=== PATIENT | male | born 1960 | race Caucasian/White ===

== ENCOUNTER 2017-08-22 11:36 | Emergency (ER) | payer BC ==
[~2017-08-22] VITALS: Ht 175.3 cm; Wt 91.6 kg
[2017-08-22 11:47] VITALS: TEMP 36.8; Ht 175.3 cm; Wt 91.6 kg
[2017-08-22] MEDS ORDERED: SODIUM CHLORIDE 0.9% 1000ML 1,000 ML IV STA (12:09)
--- NOTE | 2017-08-22 12:12 | EMERGENCY ROOM VISIT NOTE ---
History Report prepared by Alonzo: Chris Larose Under the Supervision of: Dr. Landon Martínez M.D. First contact with patient: 11:56 Chief Complaint: NAUSEA Stated Complaint: NAUSEA,NUMBNESS LEGS,HEAD,JAW History of Present Illness The patient is a 57 year old male who presents to the Emergency Room with complaints of constant numbness and tingling in his legs that began prior to arrival rated as 0/10. When he was driving from [place], he stopped at a rest area, and had a bowel movement which he states made him feel slightly better. After driving again, he reports the leg numbness returned, along with facial numbness, neck pain, jaw pain, chest pain, nausea, and SOB. He had Aspirin (324 mg) prior to arrival with relief and is on CPAP for central sleep apnea. After exercising for the past few months, he states that he has lost his balance at times. He states that the numbness and tingling in his legs has occurred before when sitting in his office. He follows with his neurologist and had an appointment 1 week ago with normal findings. He had an MRI of his brain for his cluster headaches in February [address] scan in May 2017. The patient reports he was treated for Lyme Disease 4 years ago. He denies bloody stools, difficulty walking, recent falls, head injuries, headaches, and loss of bladder and bowel control. He denies recent tick bites, thyroid function testing, and high blood pressure. Source of History: patient Onset: [employer] Position: chest, shoulder (left), leg Symptom Intensity: pain rated as 0/10 Quality: tingling Timing: constant Modifying Factors (Relieving): other (Aspirin) Associated Symptoms: + neck pain, + chest pain, + SOB, + nausea, No headache Note: Patient reports numbness and tingling in face and jaw pain. He denies difficulty walking, recent falls, head injuries, and loss of bladder and bowel control. Review of Systems See HPI for pertinent positives & negatives. A total of 10 systems reviewed and were otherwise negative. Past Medical & Surgical Medical Problems: (1) Anxiety (2) Lyme disease Surgical Problems: (1) Hx of tonsillectomy (2) S/P correction of deviated nasal septum Family History FHx: Crohn's disease FHx: cancer FHx: heart disease Social History Smoking Status: Never Smoker Alcohol Use: occasionally Marital Status: Housing Status: lives with family Occupation Status: employed Current/Historical Medications No Active Prescriptions or Reported Meds Allergies Coded Allergies: No Known Allergies (Unverified , 08/22/17) Physical Exam Vital Signs Date Time Temp Pulse Resp B/P (MAP) Pulse Ox O2 Delivery O2 Flow Rate FiO2 08/22/17 15:28 79 18 136/89 98 Room Air 08/22/17 14:26 72 18 122/87 97 Room Air 08/22/17 13:05 61 18 138/97 99 Room Air 08/22/17 11:47 36.8 85 18 170/96 95 Room Air Physical Exam GENERAL: Patient is anxious appearing and in minimal distress. EYES: No scleral icterus, unremarkable pupils. ENT: Mucous membranes moist, no nasal congestion. NECK: No masses appreciated, no meningismus, trachea is midline. RESPIRATORY: No dyspnea. Clear to auscultation and equal bilaterally. No wheeze , no rhonchi. CARDIOVASCULAR: Regular rate and rhythm. No murmurs, rubs, gallops appreciated. GASTROINTESTINAL: Abdomen soft, nontender, no peritonitis. Bowel sounds positive. No masses appreciated. BACK: No midline tenderness, no CVA tenderness EXTREMITIES: Normal motion all extremities, no cyanosis, no edema. NEUROLOGIC: Alert and oriented, no acute motor or sensory deficits, no focal weakness, cranial nerves grossly intact. SKIN: No rash, no jaundice, no diaphoresis. Medical Decision & Procedures ER Provider Diagnostic Interpretation: Radiology results and stated below per my review and radiologist interpretation: SINGLE VIEW CHEST CLINICAL HISTORY: Atypical chest pain. FINDINGS: An AP, portable, upright chest radiograph is obtained. No prior studies are available for comparison at the time of dictation. The examination is degraded by portable technique and patient rotation. The heart is mildly enlarged. The mediastinal contour is within normal limits. The pulmonary vasculature is noncongested. No airspace consolidation or pleural effusion is identified. No pneumothorax is seen. The bony thorax is grossly intact. IMPRESSION: Mild cardiac enlargement with no acute cardiopulmonary abnormality. Electronically signed by: Antonio Mendez M.D. 08/22/2017 1:05 PM Dictated Date/Time: 08/22/2017 1:05 PM Laboratory Results 08/22/17 12:41 Red Blood Count 4.57, Mean Corpuscular Volume 90.2, Mean Corpuscular Hemoglobin 31.1, Mean Corpuscular Hemoglobin Concent 34.5, Mean Platelet Volume 9.2, Neutrophils (%) (Auto) 59.6, Lymphocytes (%) (Auto) 27.2, Monocytes (%) (Auto) 10.4, Eosinophils (%) (Auto) 2.1, Basophils (%) (Auto) 0.5, Neutrophils # (Auto ) 3.69, Lymphocytes # (Auto) 1.68, Monocytes # (Auto) 0.64, Eosinophils # (Auto ) 0.13, Basophils # (Auto) 0.03 08/22/17 12:41 Test 08/22/17 12:41 08/22/17 14:26 White Blood Count 6.18 K/uL (4.8-10.8) Red Blood Count 4.57 M/uL (4.7-6.1) Hemoglobin 14.2 g/dL (14.0-18.0) Hematocrit 41.2 % (42-52) Mean Corpuscular Volume 90.2 fL (80-100) Mean Corpuscular Hemoglobin 31.1 pg (25-34) Mean Corpuscular Hemoglobin Concent 34.5 g/dl (32-36) Platelet Count 222 K/uL (130-400) Mean Platelet Volume 9.2 fL (7.4-10.4) Neutrophils (%) (Auto) 59.6 % Lymphocytes (%) (Auto) 27.2 % Monocytes (%) (Auto) 10.4 % Eosinophils (%) (Auto) 2.1 % Basophils (%) (Auto) 0.5 % Neutrophils # (Auto) 3.69 K/uL (1.4-6.5) Lymphocytes # (Auto) 1.68 K/uL (1.2-3.4) Monocytes # (Auto) 0.64 K/uL (0.11-0.59) Eosinophils # (Auto) 0.13 K/uL (0-0.5) Basophils # (Auto) 0.03 K/uL (0-0.2) RDW Standard Deviation 42.0 fL (36.4-46.3) RDW Coefficient of Variation 12.8 % (11.5-14.5) Immature Granulocyte % (Auto) 0.2 % Immature Granulocyte # (Auto) 0.01 K/uL (0.00-0.02) D-Dimer 250 ug/L FEU (0-500) Anion Gap 4.0 mmol/L (3-11) Est Creatinine Clear Calc Drug Dose 70.1 ml/min Estimated GFR () 70.2 Estimated GFR (Non- 60.6 BUN/Creatinine Ratio 13.5 (10-20) Calcium Level 8.8 mg/dl (8.5-10.1) Total Creatine Kinase 161 U/L (39-308) Creatine Kinase MB 1.3 ng/ml (0.5-3.6) Creatine Kinase MB Ratio 0.8 (0-3.0) Troponin I < 0.015 ng/ml (0-0.045) Thyroid Stimulating Hormone (TSH) 1.430 uIu/ml (0.300-4.500) Lyme Disease IgG Antibody NEG (NEG) Lyme Disease IgM Antibody NEG (NEG) Bedside Troponin I < 0.030 ng/ml (0-0.045) Laboratory results as reviewed by me. Medications Administered Medications (Trade) Dose Ordered Sig/Vale Route Start Time Stop Time Status Last Admin Dose Admin Sodium Chloride 1,000 ml @ 999 mls/hr Q1H1M STAT IV 08/22/17 12:09 08/22/17 13:09 DC 08/22/17 12:49 999 MLS/HR ECG Per My Interpretation Indication: nausea Rate (beats per minute): 73 Rhythm: normal sinus Findings: no acute ischemic change, no ectopy, other (QTc of 423) Comparison ECG Date: no prior available ED Course 1156: The patient was evaluated in room B6. A complete history and physical exam was performed. 1400: I checked on the patient and he is resting comfortably. He states he feels better and will follow up with his PCP. We discussed further imaging of his brain, back, gallbladder, and vasculature. 1415: Reevaluated the patient. Discussed results and discharge instructions: He verbalized understanding and agreement. The patient is ready for discharge. Medical Decision Differential: Sepsis, Infectious (UTI/Pneumonia/Meningitis/etc), Metabolic/ Electrolyte Abnormality, Cardiac, Dehydration, Anemia, Hepatic, Endocrine, Toxicologic, Neurologic, amongst other pathologies entertained. 57 yr old male arrives for evaluation of left upper chest discomfort resolved with ASA 324mg PO [employer]. Associated with bilateral leg tingling, hand/adama-oral paresthesias, and generalized weakness. This all started with episode of nausea which resolved after large BM. After discussing this further with him it is clear that he has been having these symptoms in varying degrees over the last 6 months with multiple ED visits, MRI brain, CT brain and neurologic evaluations. History of Anxiety and Migraines though notes no Anxiety issues in many years. No neuro deficits on evaluation and symptoms do not seem very typical of stroke, migraine, ACS. He was traveling thus Dimer done due to CP but this was negative and he is low risk PE. EKG unremarkable. Trop x 2 over several hours negative. TSH normal. Lyme negative IgM (previously had Lyme treatment 4 years ago). During time no issues throughout stay. Heavily advised follow up with PCP for further discussion of imaging/testing including possible MRI brain/lumbar, stress testing, arterial mapping, etc. Patient comfortable with this plan. [place] Drug Monitoring Program Search Results: patient reviewed within database, no issues identified Head Trauma GCS Score: 15 Medication Reconcilliation Current Medication List: was personally reviewed by me Blood Pressure Screening Patient's blood pressure: Elevated blood pressure Blood pressure disposition: Elevated BP felt to be situational Impression Primary Impression: Left sided chest pain Additional Impressions: Paresthesia of both hands Paresthesia of bilateral legs Facial paresthesia Scribe Attestation The scribe's documentation has been prepared under my direction and personally reviewed by me in its entirety. I confirm that the note above accurately reflects all work, treatment, procedures, and medical decision making performed by me. Departure Information Dispostion Home / Self-Care Prescriptions No Active Prescriptions or Reported Meds Patient Instructions My [facility] Additional Instructions It is advised you discuss whether you should have an MRI of brain/low back, arterial Ultrasounds, and possibly stress testing. If you develop worsening abdominal pain, weakness, passing out, chest pains or other concerns call 911 or return to ED immediately. Lyme testing was negative. TSH was 1.43 which is normal. Blood counts, electrolytes and kidney function were normal as well. You have been examined and treated today on an emergency basis only. This is not a substitute for, or an effort to provide, complete comprehensive medical care. It is impossible to recognize and treat all injuries or illnesses in a single emergency department visit. It is therefore important that you follow up closely with your Primary Physician. Call as soon as possible for an appointment so you can review all labs, imaging and other testing that you had. Return to Emergency Department, call 911 or seek immediate medical attention if you feel your symptoms are worsening. Problem Qualifiers
[2017-08-22 12:51] LABS: BASO % 0.5 %; BASO ABS # 0.03 K/uL (0-0.2); EOS % 2.1 %; EOS ABS # 0.13 K/uL (0-0.5); HEMATOCRIT 41.2 % (42-52); HEMOGLOBIN 14.2 g/dL (14.0-18.0); IG# 0.01 K/uL (0.00-0.02); LYMPH % 27.2 %; LYMPH ABS # 1.68 K/uL (1.2-3.4); MEAN CELL VOLUME 90.2 fL (80-100); MEAN CORPUSCULAR HEMOGLOBIN 31.1 pg (25-34); MEAN CORPUSCULAR HGB CONC 34.5 g/dl (32-36); MEAN PLATELET VOLUME 9.2 fL (7.4-10.4); MONO % 10.4 %; MONO ABS # 0.64 K/uL (0.11-0.59); NEUT % 59.6 %; NEUT ABS # 3.69 K/uL (1.4-6.5); PLATELET COUNT 222 K/uL (130-400); RED CELL DISTRIBUTION WIDTH CV 12.8 % (11.5-14.5); WHITE BLOOD COUNT 6.18 K/uL (4.8-10.8)
--- NOTE | 2017-08-22 13:07 | DIAGNOSTIC IMAGING REPORT ---
SINGLE VIEW CHEST CLINICAL HISTORY: Atypical chest pain. FINDINGS: An AP, portable, upright chest radiograph is obtained. No prior studies are available for comparison at the time of dictation. The examination is degraded by portable technique and patient rotation. The heart is mildly enlarged. The mediastinal contour is within normal limits. The pulmonary vasculature is noncongested. No airspace consolidation or pleural effusion is identified. No pneumothorax is seen. The bony thorax is grossly intact. IMPRESSION: Mild cardiac enlargement with no acute cardiopulmonary abnormality. Electronically signed by: Antonio Mendez M.D. 08/22/2017 1:05 PM Dictated Date/Time: 08/22/2017 1:05 PM
[2017-08-22 13:09] LABS: BLOOD UREA NITROGEN 18 mg/dl (7-18); CALCIUM 8.8 mg/dl (8.5-10.1); CARBON DIOXIDE 29 mmol/L (21-32); GLUCOSE 95 mg/dl (70-99); POTASSIUM 3.9 mmol/L (3.5-5.1); SODIUM 137 mmol/L (136-145)
[2017-08-22 13:19] LABS: CKMB 1.3 ng/ml (0.5-3.6)
[2017-08-22 15:28] VITALS: BP 136/89; PULSE 79; O2SAT 98
== END 2017-08-22 15:46 | disposition home or self-care (01) ==
LOC: C.EDB 11:39
DX: R07.9 Chest pain, unspecified (principal); R20.2 Paresthesia of skin; F41.9 Anxiety disorder, unspecified; Z86.19 Personal history of other infectious and parasitic diseases; Z83.79 Family history of other diseases of the digestive system; Z80.9 Family history of malignant neoplasm, unspecified; Z82.49 Family history of ischemic heart disease and other diseases of the circulatory system